=== PATIENT | male | born 1990 | race Caucasian/White ===

== ENCOUNTER 2018-06-01 01:58 | Inpatient (IN) | payer OTHER ==
[2018-06-01] MEDS: OLOPATADINE 0.1% OPHTH SOL 5ML(PATANOL) OD (03:00)
[2018-06-01] MEDS: NS 1,000 ML IV ×2 (04:16→11:13)
[2018-06-01] MEDS: FAMOTIDINE INJ 20MG/2ML VIAL (S0028) IV (04:16)
[2018-06-01 04:22] LABS: BASO % 0.2 % (0.0-1.0); EOS % 0.1 % (0.0-3.0); HEMATOCRIT 42.9 % (42.0-52.0); HEMOGLOBIN 14.8 g/dl (13.5-17.5); LYMPH # 0.8 10^3/uL (1.5-4.5); LYMPH % 6.3 % (24.0-44.0); MEAN CORPUSCULAR HEMOGLOBIN 28.6 pg (27.0-33.0); MEAN CORPUSCULAR HGB CONC 34.5 g/dl (32.0-36.5); MEAN CORPUSCULAR VOLUME 82.8 fl (80.0-96.0); MONO # 0.2 10^3/uL (0.0-0.8); MONO % 1.4 % (0.0-5.0); NEUTROPHILS # 11.4 10^3/uL (1.8-7.7); PLATELET COUNT, AUTOMATED 222 10^3/uL (150-450); RED BLOOD COUNT 5.18 10^6/uL (4.30-6.10); RED CELL DISTRIBUTION WIDTH 13.1 % (11.5-14.5); WHITE BLOOD COUNT 12.6 10^3/uL (4.0-10.0)
[2018-06-01 04:43] LABS: ERYTHROCYTE SEDIMENTATION RATE 5 mm/hr (0-15)
[2018-06-01 04:45] LABS: ALBUMIN 3.5 GM/DL (3.2-5.2); ALBUMIN/GLOBULIN RATIO 0.95 (1.00-1.93); ALKALINE PHOSPHATASE 64 U/L (45-117); ALT/SGPT 41 U/L (12-78); ANION GAP 9 MEQ/L (8-16); AST/SGOT 29 U/L (7-37); BILIRUBIN,DIRECT 0.1 MG/DL (0.0-0.2); BILIRUBIN,TOTAL 0.3 MG/DL (0.2-1.0); BLOOD UREA NITROGEN 14 MG/DL (7-18); C REACTIVE PROTEIN QUANTITATIV 3.21 MG/DL (0.00-0.30); CALCIUM LEVEL 8.5 MG/DL (8.5-10.1); CARBON DIOXIDE LEVEL 23 MEQ/L (21-32); CHLORIDE LEVEL 107 MEQ/L (98-107); CREATININE FOR GFR 0.93 MG/DL (0.70-1.30); GLOMERULAR FILTRATION RATE > 60.0 (>60); GLUCOSE, FASTING 129 MG/DL (70-100); POTASSIUM SERUM 4.4 MEQ/L (3.5-5.1); SODIUM LEVEL 139 MEQ/L (136-145); TOTAL PROTEIN 7.2 GM/DL (6.4-8.2)
[2018-06-01] MEDS: TETRACAINE 0.5% OPHTH SOLN 4ML OU (05:07)
[2018-06-01] MEDS ORDERED: D5W IV (08:00)
[2018-06-01] MEDS ORDERED: METHYLPREDNISOLONE IV (08:00)
[2018-06-01] MEDS ORDERED: MATE ADAPTER IV (08:00)
[2018-06-01] MEDS ORDERED: NS 1,000 ML IV (08:15)
[2018-06-01] MEDS ORDERED: methylPREDNISolone INJ 125 MG/2 ML VIAL (J2930) IV ×2 (09:00→10:00)
[2018-06-01 10:13] LABS: COMPLEMENT C4 17.4 MG/DL (10-40)
[2018-06-01] MEDS: diphenhydrAMINE INJ 50MG/ML VIAL (J1200) IV (11:11)
[2018-06-01] MEDS: HEPARIN SOD (PORCINE) 5000 UNITS/ML VIAL SQ ×2 (11:11→20:05)
[2018-06-01] MEDS: POLYVINYL ALCOHOL OPHTH SOLN 15 ML(LIQUITEARS) OD ×4 (11:12→20:06)
[2018-06-01] MEDS: methylPREDNISolone INJ 125 MG/2 ML VIAL (J2930) IV (11:13)
[2018-06-01] MEDS: LevoFLOXacin IV 500 MG in APPROPRIATE DILUENT 1 EA IV (11:13)
[2018-06-01] MEDS: FAMOTIDINE IV BAG 20 MG in APPROPRIATE DILUENT 1 EA IV (13:21)
[2018-06-01] MEDS: ACETAMINOPHEN TAB 650MG DOSE (2X325MG) PO (17:25)
[2018-06-01] MEDS: predniSONE 50 MG TAB PO (20:05)
[2018-06-01] MEDS: IBUPROFEN 600 MG TAB PO (20:05)
[2018-06-02] MEDS: LevoFLOXacin 500 MG TABLET PO (05:44)
[2018-06-02] MEDS: POLYVINYL ALCOHOL OPHTH SOLN 15 ML(LIQUITEARS) OD ×2 (08:22→12:39)
[2018-06-02] MEDS: predniSONE 50 MG TAB PO (08:23)
[2018-06-02] MEDS: HEPARIN SOD (PORCINE) 5000 UNITS/ML VIAL SQ (08:23)
[2018-06-02 09:44] LABS: BASO % 0.1 % (0.0-1.0); HEMATOCRIT 38.8 % (42.0-52.0); HEMOGLOBIN 13.5 g/dl (13.5-17.5); IMMATURE GRANULOCYTE % 0.6 % (0-3.0); LYMPH # 1.8 10^3/uL (1.5-4.5); LYMPH % 9.8 % (24.0-44.0); MEAN CORPUSCULAR HEMOGLOBIN 28.7 pg (27.0-33.0); MEAN CORPUSCULAR HGB CONC 34.8 g/dl (32.0-36.5); MEAN CORPUSCULAR VOLUME 82.4 fl (80.0-96.0); MONO # 1.1 10^3/uL (0.0-0.8); MONO % 6.2 % (0.0-5.0); NEUTROPHILS # 15.3 10^3/uL (1.8-7.7); NEUTROPHILS % 83.3 % (36.0-66.0); PLATELET COUNT, AUTOMATED 202 10^3/uL (150-450); RED BLOOD COUNT 4.71 10^6/uL (4.30-6.10); RED CELL DISTRIBUTION WIDTH 13.5 % (11.5-14.5); WHITE BLOOD COUNT 18.3 10^3/uL (4.0-10.0)
[2018-06-02 10:04] LABS: ALBUMIN 3.2 GM/DL (3.2-5.2); ALBUMIN/GLOBULIN RATIO 0.97 (1.00-1.93); ALKALINE PHOSPHATASE 63 U/L (45-117); ALT/SGPT 32 U/L (12-78); ANION GAP 5 MEQ/L (8-16); AST/SGOT 18 U/L (7-37); BILIRUBIN,TOTAL 0.2 MG/DL (0.2-1.0); BLOOD UREA NITROGEN 19 MG/DL (7-18); C REACTIVE PROTEIN QUANTITATIV 1.27 MG/DL (0.00-0.30); CALCIUM LEVEL 8.5 MG/DL (8.5-10.1); CARBON DIOXIDE LEVEL 25 MEQ/L (21-32); CHLORIDE LEVEL 111 MEQ/L (98-107); CREATININE FOR GFR 0.78 MG/DL (0.70-1.30); GLOMERULAR FILTRATION RATE > 60.0 (>60); GLUCOSE, FASTING 136 MG/DL (70-100); MAGNESIUM LEVEL 1.9 MG/DL (1.8-2.4); POTASSIUM SERUM 4.5 MEQ/L (3.5-5.1); SODIUM LEVEL 141 MEQ/L (136-145); TOTAL PROTEIN 6.5 GM/DL (6.4-8.2)
[2018-06-02] MEDS ORDERED: CYCLOPENTOLATE 2% OPHTH SOLN 2ML BTL OD (12:30)
[2018-06-02] MEDS ORDERED: MAXITROL OPHTH SUSP 5 ML OD (13:00)
[2018-06-03 08:57] LABS: TRYPTASE 4.8 ug/L (2.2-13.2)
== END 2018-06-02 14:55 | DRG 385 ==
LOC: M ED 01:58 → M ED INP 06:35 → M PCU 09:38
DX: L27.0 Generalized skin eruption due to drugs and medicaments taken internally (principal); L03.317 Cellulitis of buttock; T36.4X5A Adverse effect of tetracyclines, initial encounter; R60.9 Edema, unspecified; Z79.899 Other long term (current) drug therapy; S05.01XA Injury of conjunctiva and corneal abrasion without foreign body, right eye, initial encounter; W22.8XXA Striking against or struck by other objects, initial encounter; Y92.149 Unspecified place in prison as the place of occurrence of the external cause